=== PATIENT | male | born 1955 | race Caucasian/White ===

== ENCOUNTER 2021-10-29 10:11 | Outpatient (REF) | payer BC, SELFPAY ==
[2021-10-29 10:32] LABS: MANUAL DIFF FLAG NO
[2021-10-29 11:05] LABS: Basophils Percent Auto 0.5 % (0-2); Hematocrit 44.1 % (42.0-52.0); Hemoglobin 15.6 g/dl (14.0-18.0); Imm Gran Abs Auto 0.02 X10*3/uL (0.00-0.03); Imm Gran Pct Auto 0.3 % (0.0-0.4); Lymphocytes Absolute Auto 2.4 X10*3/uL (1.2-4.9); Lymphocytes Percent Auto 37.4 % (20-40); Mean Corpuscular HGB Conc 35.4 g/dl (31.0-36.0); Mean Corpuscular Hemoglobin 32.2 pg (27.0-33.0); Mean Corpuscular Volume 90.9 fL (80.0-98.0); Monocytes Absolute Auto 0.3 X10*3/uL (0.1-1.2); Monocytes Percent Auto 5.2 % (2-11); Neutrophils Absolute Auto 3.6 x10*3/uL (2.0-8.3); Neutrophils Percent Auto 56.6 % (45-73); Platelet Count 197 X10*3/uL (160-400); Red Blood Count 4.85 X10*6/uL (4.60-5.80); Red Cell Distribution Width 12.2 % (11.0-16.0); White Blood Count 6.4 X10*3/uL (4.8-10.8)
[2021-10-29 12:09] LABS: Alanine Aminotransferase 25 U/L (0-40); Albumin Level 4.3 g/dL (3.5-5.0); Alkaline Phosphatase 98 U/L (39-117); Anion Gap 12 (12-20); Aspartate Amino Transferase 15 U/L (5-37); Bilirubin Total 0.8 mg/dL (0.0-1.0); Blood Urea Nitrogen 22 mg/dL (9-16); Calcium 10.2 mg/dL (8.4-10.2); Carbon Dioxide 25 mmol/L (22-29); Chloride 107 mmol/L (96-108); Cholesterol 150 mg/dL; Estimated Glomerular Filt Rate > 60; Glucose Fasting 119 mg/dL (60-99); HDL Cholesterol 31 mg/dL; LDL Cholesterol Calculated 104 mg/dl; Potassium 4.7 mmol/L (3.3-5.1); Sodium 139 mmol/L (135-145); Total Protein 6.8 g/dL (6.5-8.0); Triglycerides 75 mg/dL
[2021-10-29 12:40] LABS: Prostate Specific Antigen 1.35 ng/mL (<0.05-4.0)
== END 2021-10-29 10:12 | disposition home or self-care (01) ==
LOC: HO.LAB 10:11
PROVIDERS: PCP Internal Medicine; Visit Provider Internal Medicine
DX: Z00.00 Encounter for general adult medical examination without abnormal findings (principal); Z12.5 Encounter for screening for malignant neoplasm of prostate
CPT/HCPCS: 36415; 80053; 80061; 84153; 85025

== ENCOUNTER 2021-11-01 09:34 | Outpatient (REF) | payer OTHER, SELFPAY ==
--- NOTE | ~2021-11-01 | XR_ITS ---
EXAMINATION: XR CHEST CLINICAL INFORMATION: Cough. COMPARISON: Chest radiographs 04/19/2011 TECHNIQUE: 2 views of the chest were obtained. FINDINGS: There is a chronic nodule mid right lower lobe similar to remote prior exam 2010 measuring approximately 7 x 10 mm. There is vague opacity medial right upper lobe overlying the first costochondral junction without correlate on lateral view. Opacity may be related to density from the costal cartilage. This may be further assessed with apical lordotic view. The remainder the lungs are clear. The costophrenic sulci are clear. The heart is normal in size. The vascularity is normal. The hilar and mediastinal contours are unremarkable. No acute bony abnormality. XR/XR chest 2V IMPRESSION: 1. Opacity right medial upper zone on AP view, possibly related partly to the first costochondral junction. Recommend apical lordotic view for further evaluation. 2. Chronic nodule right lower lobe similar to 2011. 3. Lungs otherwise clear. No effusion. PSA to call.
[2021-11-01 10:41] LABS: Influenza A PCR NEGATIVE (Negative); Influenza B PCR NEGATIVE (Negative); Resp Syncy Virus RNA Qual PCR NEGATIVE (Negative); SARS COV2 PCR INHOUSE POSITIVE (Negative)
[2021-11-01 10:52] LABS: Estimated Average Glucose 108 mg/dL; Hemoglobin A1c % 5.4 %
[2021-11-01 10:59] LABS: Appearance Urine CLEAR; Color Urine YELLOW; Glucose Urine UA 100 MG/DL (NEG); Leukocyte Esterase Urine NEG (NEG); Nitrite Urine NEG (NEG); Specific Gravity - Urine 1.025 (1.005-1.025); Urine Blood NEG (NEG); Urine Ketones 5 MG/DL (NEG); Urine Protein NEG (NEG-TRACE)
[2021-11-01 11:11] LABS: D Dimer High Sensitivity < 150 NG/ML
[2021-11-01 11:14] LABS: C Reactive Protein 2.13 mg/dL (< or = 0.50)
[2021-11-01 11:15] LABS: B Type Natriuretic Peptide 14 pg/mL (<100)
[2021-11-01 11:28] LABS: Erythrocyte Sedimentation Rate 5 MM/HR (0-15)
[2021-11-01 11:42] LABS: Free T4 (Free Thyroxine) 0.84 ng/dL (0.71-1.85); Thyroid Stimulating Hormone 1.01 uIU/mL (0.32-4.0)
[2021-11-03 01:12] LABS: Lyme Abs Screen <0.90 index
== END 2021-11-01 09:35 | disposition home or self-care (01) ==
LOC: HO.XRAY 09:34
PROVIDERS: PCP Internal Medicine; Visit Provider Internal Medicine
DX: Z20.822 Contact with and (suspected) exposure to COVID-19 (principal); R05.9 Cough, unspecified; R53.83 Other fatigue; E78.00 Pure hypercholesterolemia, unspecified
CPT/HCPCS: 0241U; 36415; 71046; 81003; 82550; 83036; 83880; 84439; 84443; 85379; 85652; 86140; 86617; 86618

== ENCOUNTER 2021-11-14 15:21 | Outpatient (REF) | payer OTHER, SELFPAY ==
--- NOTE | ~2021-11-14 | US_ITS ---
EXAMINATION: US EXTRACRANIAL CAROTID DUPLEX, BILATERAL CLINICAL INFORMATION: History of transient ischemic attack. Hypertension. COMPARISON: None TECHNIQUE: Real-time ultrasound and Doppler techniques (integrating B-mode 2-D vascular images, Doppler spectral analysis and color-flow Doppler imaging) were utilized to interrogate the extracranial carotid arteries, the vertebral arteries and proximal subclavian arteries bilaterally. The degree of stenosis is determined by criteria similar to NASCET. FINDINGS: Right Side: 1. There is mild atherosclerotic plaque seen in the bifurcation/proximal ICA region. 2. The common carotid artery PSV proximally is 107 cm/s and distally 97 cm/s. 3. The proximal internal carotid artery velocities are 77 cm/s systolic and 13 cm/s diastolic. 4. The proximal external carotid artery PSV is 110 cm/s. 5. The vertebral artery shows antegrade flow. 6. The subclavian artery waveforms are normal. Left Side: 1. There is mild atherosclerotic plaque seen in the bifurcation/proximal ICA region. 2. The common carotid artery PSV proximally is 128 cm/s and distally 87 cm/s. 3. The proximal internal carotid artery velocities are 70 cm/s systolic and 23 cm/s diastolic. 4. The proximal external carotid artery PSV is 109 cm/s. 5. The vertebral artery shows antegrade flow. 6. The subclavian artery waveforms are normal. ADDITIONAL: Within the left lobe of the thyroid is a 0.9 cm cystic nodule. US/US carotid duplex BI IMPRESSION: 1. RIGHT: Minimal, non-hemodynamically significant stenosis of the proximal right internal carotid artery corresponding to a 0-49% stenosis by velocity criteria. 2. LEFT: Minimal, non-hemodynamically significant stenosis of the proximal left internal carotid artery corresponding to a 0-49% stenosis by velocity criteria.
== END 2021-11-14 15:22 | disposition home or self-care (01) ==
LOC: HO.US 15:21
PROVIDERS: PCP Internal Medicine; Visit Provider Internal Medicine
DX: G45.9 Transient cerebral ischemic attack, unspecified (principal)
CPT/HCPCS: 93880

== ENCOUNTER 2021-11-22 14:14 | Outpatient (REF) | payer OTHER, SELFPAY ==
--- NOTE | ~2021-11-22 | MR_ITS ---
MR BRAIN WITHOUT AND WITH CONTRAST CLINICAL INFORMATION: TIA to rule out CVA. The patient describes one episode of unusual behavior. COMPARISON: None available. TECHNIQUE: Multiplanar, multisequence MRI of the brain was obtained before and after the intravenous administration of 10 mL of Gadavist. FINDINGS: There is a subacute appearing intraparenchymal hemorrhage within the left putamen measuring up to 3.3 cm AP by 1.3 cm TV by 2.5 cm CC. The hematoma exhibits primarily high T1 signal intensity subacute methemoglobin without any definite enhancement when comparing the precontrast to the postcontrast series. There is mild chronic microangiopathy. There is no hydrocephalus, extra-axial surface collection, or herniation. The major flow voids at the skull base are preserved. There is no acute infarct on diffusion-weighted imaging. The midline structures are normal. The cerebellar tonsils are normally positioned. The cerebellum and brainstem are normal. The craniocervical junction is normal. Osseous marrow signal intensity is homogenous. The visualized soft tissues are unremarkable. Retention cysts within the right maxillary sinus and mild mucosal thickening throughout the remaining paranasal sinuses. 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 The hematoma exhibits primarily high T1 signal intensity subacute methemoglobin without any definite enhancement when comparing the precontrast to the postcontrast series. Findings discussed with Dr. Abdul at 3:44 PM on 11/22/2021.
== END 2021-11-22 14:15 | disposition home or self-care (01) ==
LOC: HO.MRI 14:14
PROVIDERS: Visit Provider Internal Medicine
DX: G45.9 Transient cerebral ischemic attack, unspecified (principal)
CPT/HCPCS: 70553; A9585

== ENCOUNTER 2021-12-24 16:23 | Outpatient (REF) | payer OTHER, SELFPAY ==
[2021-12-24 17:46] LABS: Alanine Aminotransferase 23 U/L (0-40); Albumin Level 4.4 g/dL (3.5-5.0); Alkaline Phosphatase 94 U/L (39-117); Anion Gap 11 (12-20); Aspartate Amino Transferase 15 U/L (5-37); Bilirubin Total 0.6 mg/dL (0.0-1.0); Blood Urea Nitrogen 33 mg/dL (9-16); Calcium 10.5 mg/dL (8.4-10.2); Carbon Dioxide 27 mmol/L (22-29); Chloride 102 mmol/L (96-108); Estimated Glomerular Filt Rate 50; Glucose Random 140 mg/dL (60-115); Potassium 4.3 mmol/L (3.3-5.1); Sodium 136 mmol/L (135-145)
== END 2021-12-24 16:24 | disposition home or self-care (01) ==
LOC: HO.LAB 16:23
PROVIDERS: PCP Internal Medicine; Visit Provider Internal Medicine
DX: I10 Essential (primary) hypertension (principal)
CPT/HCPCS: 36415; 80053

== ENCOUNTER 2022-01-14 15:57 | Outpatient (REF) | payer OTHER, SELFPAY ==
[2022-01-14 17:26] LABS: Anion Gap 13 (12-20); Blood Urea Nitrogen 24 mg/dL (9-16); Calcium 10.2 mg/dL (8.4-10.2); Carbon Dioxide 25 mmol/L (22-29); Chloride 105 mmol/L (96-108); Estimated Glomerular Filt Rate 55; Glucose Random 138 mg/dL (60-115); Potassium 4.6 mmol/L (3.3-5.1); Sodium 138 mmol/L (135-145)
[2022-01-14 20:16] LABS: Estimated Average Glucose 123 mg/dL; Hemoglobin A1C 148.8321 umol/L; Hemoglobin A1c % 5.9 %
== END 2022-01-14 15:58 | disposition home or self-care (01) ==
LOC: HO.LAB 15:57
PROVIDERS: Visit Provider Internal Medicine
DX: R73.03 Prediabetes (principal); I10 Essential (primary) hypertension
CPT/HCPCS: 36415; 80048; 83036

== ENCOUNTER 2022-03-05 16:13 | Outpatient (REF) | payer OTHER, SELFPAY ==
--- NOTE | ~2022-03-05 | MR_ITS ---
EXAMINATION: MR BRAIN WITHOUT CONTRAST MR ANGIOGRAPHY OF THE HEAD WITHOUT CONTRAST CLINICAL INFORMATION: Cerebral hemorrhage and hypertension. COMPARISON: MRI scan of the brain 11/22/2021. TECHNIQUE: Multiplanar, multisequence imaging of the brain was obtained without contrast. 3-D [id number] MR angiography was performed. Multiple 3-D reformatted images were processed on the technologist workstation. The degree of stenosis is based off NASCET criteria. FINDINGS: MRI BRAIN: There are evolving changes from the previously demonstrated left basal ganglia parenchymal hemorrhage. An oval area of increased T2 signal with surrounding low gradient signal is noted, consistent with sequelae of prior left basal ganglia hemorrhage. It is slightly smaller compared to prior imaging, and measures 3.3 x 0.8 x 1.5 cm in AP, transverse and craniocaudal dimensions. On the T1 images the contents are hypointense on the current study. No new areas of hemorrhage are demonstrated. There is no increased diffusion signal within or around the hemorrhage in the current study. There is mild increased FLAIR signal in the periphery of hemorrhage. There is no mass effect or midline shift. No diffusion abnormalities are identified to suggest an acute or subacute infarct. The ventricles and sulci are slightly commensurately prominent consistent with diffuse volume loss. There are scattered areas of increased T2 and FLAIR signal in the periventricular subcortical white matter, consistent with mild chronic microvascular ischemic disease. No extra-axial fluid collections are seen. The brainstem and cerebellum are normal. No new pathologic magnetic susceptibility artifact is identified on the gradient refocused acquisition. The craniovertebral junction, marrow signal, and midline structures are normal. The major intracranial flow-voids at the level of the [place] are preserved. The dural venous sinus flow-voids are maintained. The mastoid air cells are well-aerated. There is a retention cyst in the right maxillary sinus. There is mild mucoperiosteal thickening in the maxillary and ethmoid sinuses. MRA HEAD: In the anterior circulation, the distal internal carotid arteries within the neck appear normal. The intracranial internal carotid arteries and their bifurcations appear normal. The A1 segment of the right anterior cerebral artery has uniform thin caliber compared to the left, likely congenital. The bilateral middle and left anterior cerebral arteries demonstrate normal caliber with no evidence of focal stenosis, aneurysm or vascular malformation. There are three A2 segments of the anterior cerebral arteries, which is a normal variant. The anterior communicating artery is normal. In the posterior circulation, the vertebral arteries are codominant, and have uniform caliber intradurally. The basilar artery appears normal. The posterior cerebral arteries have normal caliber. MR/MR angio head wo con IMPRESSION: 1. There are no acute bleeds or infarcts. No masses are demonstrated. 2. 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 There is no mass effect or midline shift. 3. MRA of the head does not demonstrate focal stenosis, aneurysm or vascular malformation. Normal variant changes as described above. MR angiography of the intracranial circulation does not demonstrate focal stenosis, aneurysm or vascular malformation. The study is within normal limits.
--- NOTE | ~2022-03-05 | MR_ITS ---
EXAMINATION: MR BRAIN WITHOUT CONTRAST MR ANGIOGRAPHY OF THE HEAD WITHOUT CONTRAST CLINICAL INFORMATION: Cerebral hemorrhage and hypertension. COMPARISON: MRI scan of the brain 11/22/2021. TECHNIQUE: Multiplanar, multisequence imaging of the brain was obtained without contrast. 3-D [id number] MR angiography was performed. Multiple 3-D reformatted images were processed on the technologist workstation. The degree of stenosis is based off NASCET criteria. FINDINGS: MRI BRAIN: There are evolving changes from the previously demonstrated left basal ganglia parenchymal hemorrhage. An oval area of increased T2 signal with surrounding low gradient signal is noted, consistent with sequelae of prior left basal ganglia hemorrhage. It is slightly smaller compared to prior imaging, and measures 3.3 x 0.8 x 1.5 cm in AP, transverse and craniocaudal dimensions. On the T1 images the contents are hypointense on the current study. No new areas of hemorrhage are demonstrated. There is no increased diffusion signal within or around the hemorrhage in the current study. There is mild increased FLAIR signal in the periphery of hemorrhage. There is no mass effect or midline shift. No diffusion abnormalities are identified to suggest an acute or subacute infarct. The ventricles and sulci are slightly commensurately prominent consistent with diffuse volume loss. There are scattered areas of increased T2 and FLAIR signal in the periventricular subcortical white matter, consistent with mild chronic microvascular ischemic disease. No extra-axial fluid collections are seen. The brainstem and cerebellum are normal. No new pathologic magnetic susceptibility artifact is identified on the gradient refocused acquisition. The craniovertebral junction, marrow signal, and midline structures are normal. The major intracranial flow-voids at the level of the [place] are preserved. The dural venous sinus flow-voids are maintained. The mastoid air cells are well-aerated. There is a retention cyst in the right maxillary sinus. There is mild mucoperiosteal thickening in the maxillary and ethmoid sinuses. MRA HEAD: In the anterior circulation, the distal internal carotid arteries within the neck appear normal. The intracranial internal carotid arteries and their bifurcations appear normal. The A1 segment of the right anterior cerebral artery has uniform thin caliber compared to the left, likely congenital. The bilateral middle and left anterior cerebral arteries demonstrate normal caliber with no evidence of focal stenosis, aneurysm or vascular malformation. There are three A2 segments of the anterior cerebral arteries, which is a normal variant. The anterior communicating artery is normal. In the posterior circulation, the vertebral arteries are codominant, and have uniform caliber intradurally. The basilar artery appears normal. The posterior cerebral arteries have normal caliber. MR/MR head/brain wo con IMPRESSION: 1. There are no acute bleeds or infarcts. No masses are demonstrated. 2. 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 There is no mass effect or midline shift. 3. MRA of the head does not demonstrate focal stenosis, aneurysm or vascular malformation. Normal variant changes as described above. MR angiography of the intracranial circulation does not demonstrate focal stenosis, aneurysm or vascular malformation. The study is within normal limits.
== END 2022-03-05 16:14 | disposition home or self-care (01) ==
LOC: HO.MRI 16:13
PROVIDERS: Visit Provider Psychiatry & Neurology Neurology
DX: I61.9 Nontraumatic intracerebral hemorrhage, unspecified (principal); I10 Essential (primary) hypertension
CPT/HCPCS: 70544; 70551

== ENCOUNTER 2022-04-06 08:43 | Outpatient (REF) | payer OTHER, SELFPAY ==
[2022-04-06 09:04] LABS: MANUAL DIFF FLAG NO
[2022-04-06 09:12] LABS: Basophils Percent Auto 0.5 % (0-2); Hematocrit 44.3 % (42.0-52.0); Hemoglobin 15.7 g/dl (14.0-18.0); Imm Gran Abs Auto 0.02 X10*3/uL (0.00-0.03); Imm Gran Pct Auto 0.3 % (0.0-0.4); Lymphocytes Absolute Auto 2.2 X10*3/uL (1.2-4.9); Lymphocytes Percent Auto 34.9 % (20-40); Mean Corpuscular HGB Conc 35.4 g/dl (31.0-36.0); Mean Corpuscular Hemoglobin 32.3 pg (27.0-33.0); Mean Corpuscular Volume 91.2 fL (80.0-98.0); Mean Platelet Volume 9.1 fL (9.4-12.4); Monocytes Absolute Auto 0.3 X10*3/uL (0.1-1.2); Monocytes Percent Auto 5.3 % (2-11); Neutrophils Absolute Auto 3.7 x10*3/uL (2.0-8.3); Platelet Count 173 X10*3/uL (160-400); Red Blood Count 4.86 X10*6/uL (4.60-5.80); White Blood Count 6.3 X10*3/uL (4.8-10.8)
[2022-04-06 09:22] LABS: Estimated Average Glucose 97 mg/dL
[2022-04-06 09:49] LABS: Alanine Aminotransferase 17 U/L (0-40); Albumin Level 4.1 g/dL (3.5-5.0); Alkaline Phosphatase 83 U/L (39-117); Anion Gap 12 (12-20); Aspartate Amino Transferase 14 U/L (5-37); Blood Urea Nitrogen 23 mg/dL (9-16); Calcium 10.3 mg/dL (8.4-10.2); Carbon Dioxide 29 mmol/L (22-29); Chloride 104 mmol/L (96-108); Cholesterol 152 mg/dL; Estimated Glomerular Filt Rate > 60; Glucose Fasting 134 mg/dL (60-99); HDL Cholesterol 43 mg/dL; LDL Cholesterol Calculated 94 mg/dl; Potassium 4.9 mmol/L (3.3-5.1); Sodium 140 mmol/L (135-145); Total Protein 6.6 g/dL (6.5-8.0); Triglycerides 76 mg/dL
[2022-04-06 11:42] LABS: Creatinine Urine 116.39 mg/dL; Microalbumin Urine < 5.0 mg/L
== END 2022-04-06 08:44 | disposition home or self-care (01) ==
LOC: HO.LAB 08:43
PROVIDERS: PCP Internal Medicine; Visit Provider Internal Medicine
DX: I12.9 Hypertensive chronic kidney disease with stage 1 through stage 4 chronic kidney disease, or unspecified chronic kidney disease (principal); N18.9 Chronic kidney disease, unspecified; R73.03 Prediabetes; Z86.73 Personal history of transient ischemic attack (TIA), and cerebral infarction without residual deficits
CPT/HCPCS: 36415; 80053; 80061; 82043; 83036; 85025

== ENCOUNTER 2022-07-02 16:39 | Outpatient (REF) | payer OTHER, SELFPAY ==
[2022-07-02 17:29] LABS: Estimated Average Glucose 111 mg/dL; Hemoglobin A1c % 5.5 %
[2022-07-02 17:40] LABS: Anion Gap 10 (12-20); Blood Urea Nitrogen 28 mg/dL (9-16); Calcium 10.4 mg/dL (8.4-10.2); Carbon Dioxide 28 mmol/L (22-29); Chloride 105 mmol/L (96-108); Estimated Glomerular Filt Rate > 60; Glucose Random 114 mg/dL (60-115); Potassium 4.2 mmol/L (3.3-5.1); Sodium 139 mmol/L (135-145)
== END 2022-07-02 16:40 | disposition home or self-care (01) ==
LOC: HO.LAB 16:39
PROVIDERS: PCP Internal Medicine; Visit Provider Internal Medicine
DX: I10 Essential (primary) hypertension (principal); R73.03 Prediabetes
CPT/HCPCS: 36415; 80048; 83036

== ENCOUNTER 2024-04-16 06:16 | Outpatient (REF) | payer OTHER, SELFPAY ==
[2024-04-16 06:35] LABS: MANUAL DIFF FLAG NO
[2024-04-16 07:15] LABS: Basophils Percent Auto 0.5 % (0-2); Eosinophils Absolute Auto 0.1 X10*3/uL (0.0-0.4); Eosinophils Percent Auto 1.8 % (0-4); Hematocrit 40.5 % (42.0-52.0); Imm Gran Abs Auto 0.03 X10*3/uL (0.00-0.03); Imm Gran Pct Auto 0.5 % (0.0-0.4); Lymphocytes Absolute Auto 2.9 X10*3/uL (1.2-4.9); Lymphocytes Percent Auto 43.5 % (20-40); Mean Corpuscular Hemoglobin 33.9 pg (27.0-33.0); Mean Corpuscular Volume 91.6 fL (80.0-98.0); Mean Platelet Volume 10.2 fL (9.4-12.4); Monocytes Absolute Auto 0.4 X10*3/uL (0.1-1.2); Monocytes Percent Auto 6.5 % (2-11); Neutrophils Absolute Auto 3.2 x10*3/uL (2.0-8.3); Neutrophils Percent Auto 47.2 % (45-73); Platelet Count 195 X10*3/uL (160-400); Red Blood Count 4.42 X10*6/uL (4.60-5.80); White Blood Count 6.7 X10*3/uL (4.8-10.8)
[2024-04-16 07:23] LABS: Appearance Urine Clear; Color Urine Yellow; Glucose Urine UA Negative (Negative); Leukocyte Esterase Urine Negative (Negative); Nitrite Urine Negative (Negative); PH 6.5 (5.0-9.0); Specific Gravity - Urine 1.015 (1.005-1.025); Urine Blood Negative (Negative); Urine Ketones Negative (Negative); Urine Protein Negative (Neg-Trace)
[2024-04-16 07:36] LABS: Estimated Average Glucose 111 mg/dL; Hemoglobin A1C 135.8022 umol/L; Hemoglobin A1c % 5.5 % (<6.0)
[2024-04-16 08:16] LABS: Alanine Aminotransferase 24 U/L (0-40); Albumin Level 4.1 g/dL (3.5-5.0); Alkaline Phosphatase 65 U/L (39-117); Anion Gap 11 (12-20); Aspartate Amino Transferase 18 U/L (5-37); Blood Urea Nitrogen 31 mg/dL (9-16); Calcium 10.2 mg/dL (8.4-10.2); Carbon Dioxide 27 mmol/L (22-29); Chloride 105 mmol/L (96-108); Cholesterol 149 mg/dL (<200); Estimated Glomerular Filt Rate 52; Glucose Fasting 117 mg/dL (60-99); HDL Cholesterol 37 mg/dL (>40); LDL Cholesterol Calculated 96 mg/dL (<100); Potassium 3.7 mmol/L (3.3-5.1); Sodium 139 mmol/L (135-145); Total Protein 6.6 g/dL (6.5-8.0); Triglycerides 84 mg/dL (<150)
[2024-04-16 15:10] LABS: Creatinine Urine 80.06 mg/dL; Microalbum/Creatinine Ratio Ur 7.4 ug/mg cr (<30)
== END 2024-04-16 06:17 | disposition home or self-care (01) ==
LOC: HO.LAB 06:16
PROVIDERS: PCP Internal Medicine; Visit Provider Internal Medicine
DX: I10 Essential (primary) hypertension (principal); R73.03 Prediabetes; N40.1 Benign prostatic hyperplasia with lower urinary tract symptoms
CPT/HCPCS: 36415; 80053; 80061; 81003; 82043; 82570; 83036; 85025

== ENCOUNTER 2025-04-18 15:11 | Outpatient (AMB) | payer OTHER, SELFPAY ==
--- NOTE | 2025-04-18 15:13 | A.OFFPC_ITS ---
Vital Signs 04/18/25 15:24 Height 6 ft 0.5 in Weight 236 lb BMI 31.6 BP 148/80 H Blood Pressure Location Lt brachial Position Sitting Respiration 17 Pulse 62 Pulse Source Pulse Oximeter Temp 97.2 F Temp Source Temporal Artery Scan Pulse Oximetry (%) 95 Oxygen Delivery Method Room Air Intake Visit Reasons: Annual Strip Roller Required: No Accompanied by: Self / Same As Patient Allergies oxycodone (From Percocet) Allergy (Mild, Verified 04/18/25 15:14) ITCHING Tobacco use date assessed: 04/18/25 Fall risk assessment: 1 Fall in past year Last assessed Fall Risk: 04/18/25 Dental Screening Dental Screen Date: 04/18/25 Did you have a dental visit in the last 12 months?: No Did you have a dental problem in the last 6 months where you did not have access to dental care?: No Was dental information given to patient?: Patient has dentist HPI HPI Comments History of Present Illness Details The patient is a 69-year-old male presenting with a follow-up for management of Essential Hypertension and assessment for hyperlipidemia. He has a long-standing history of hypertension for which he has been prescribed Hydrochlorothiazide 25 mg and Irbesartan 300 mg once daily. The medications were initially started following a mini-stroke or transient ischemic attack several years ago, attributed to elevated blood pressure levels. Over the years, the patient reports stable blood pressure readings at home averaging 135 mmHg systolic, although today's reading was 148/80 mmHg, causing some concern. The patient does not report any current symptoms related to blood pressure fluctuations but acknowledges a previous history of kidney stones that required ultrasonic intervention, an episode which typically involved taking pain me dications that he found resulted in itching. The patient also mentions a cholesterol issue, which, based on past labs, indicates borderline levels requiring monitoring and potential treatment. Other relevant family history includes paternal atrial fibrillation managed with anticoagulants and a grandmother with insulin-dependent diabetes mellitus. The patient's medical management is crucial to assess today to prevent possible cardiovascular events, as the calculated risk of heart-related incidents (such as myocardial infarction or stroke) warrants potential initiation on statins, acknowledging the patient?s current borderline cholesterol levels. Medical History: - Essential Hypertension - Status post Transient Ischemic Attack (TIA) - Borderline Hyperlipidemia - History of Renal Calculi Surgical History: - Vasectomy - Appendectomy - Lithotripsy for Renal Calculi Medications: - Hydrochlorothiazide 25 mg once daily ( for hypertension) - Irbesartan 300 mg once daily (for hype rtension) Family History: - Paternal history of atrial fibrillatio n - Grandmother with insulin-dependent christofer betes mellitus Social History: - Employment: [employer] at [employer] - Housing: Stable housing on [facility]; owns a home - Alcohol Use: Consumes one alcoholic dr ink daily after work - Tobacco Use: Denied, except briefly at age 13 - Recreational drug use: Denied - Family: Five children - Financial: Manages bill payments satis Transfer To [facility] Medical History (Updated 04/18/25 @ 15:40 by Newton Sheridan MD) Hyperlipidemia Hypertension Surgical History (Updated 04/18/25 @ 08:54 by Sarah Tapia) History of colonoscopy (~12/31/19) Social History Housing: House Patient Tobacco Use Status: Never used Tobacco e-Cigarette/Vaping Use: Never Used service: No Current occupational status: employed Current occupation: [employer] Questionnaire PHQ-9 Over the last 2 weeks, how often have you been bothered by any of the following problems? 1. Little interest or pleasure in doing things: not at all 2. Feeling down, depressed, or hopeless: not at all 3. Trouble falling or staying asleep, or sleeping too much: not at all 4. Feeling tired or having little energy: not at all 5. Poor appetite or overeating: not at all 6. Feeling bad about yourself - or that you are a failure or have let yourself or your family down: not at all 7. Trouble concentrating on things, such as reading the newspaper or watching television: not at all 8. Moving or speaking so slowly that other people could have noticed. Or the opposite - being so fidgety or restless that you have been moving around a lot more than usual: not at all 9. Thoughts that you would be better off or of hurting yourself in some way: not at all Total score: 0 Depression Screening Interpretation: Negative Depression Screening Done: Yes 98142 - PHQ-9 Billing: Yes Source: Developed by Drs. Braxton Bravo, Maliha Alcazar, Alberto Balderrama and colleagues, with an educational julisa from [employer]. Thrive Questionnaire Date Thrive assessed: 04/18/25 I am a: Patient What is your living situation today?: I have a steady place to live Within the past 12 months, did the food you bought not last and you didn't have the money to get more?: Never true Within the past 12 months, did you worry whether your food would run out before you got money to buy more?: Never true Do you have trouble paying for medicines?: No Do you have trouble getting transportation to medical appointments?: No Do you have trouble paying your heating and electricity bill?: No Do you have trouble taking care of your child, family member or friend?: No Do you have trouble with day-to-day activities such as bathing, preparing meals, shopping, managing finances, etc.?: No Are you currently unemployed and looking for a job?: No Are you interested in more education?: No THRIVE Score: 0 AUDIT C Alcohol Use Questionnaire (AUDIT-C) 1. How often do you have a drink containing alcohol?: 4 or more times a week 2. How many drinks containing alcohol do you have on a typical day when you are drinking?: 1 or 2 3. How often do you have six or more drinks on one occasion?: Never Total Score: 4 IZAIAH-7 AMB Questionnaire IZAIAH-7 Date IZAIAH - 7 assessed: 04/18/25 Feeling nervous, anxious, or on edge: 0 = Not at all Not being able to stop or control worryin = Not at all Worrying too much about different things: 0 = Not at all Trouble relaxin = Not at all Being so restless that it is hard to sit still: 0 = Not at all Becoming easily annoyed or irritable: 0 = Not at all Feeling afraid as if something awful might happen: 0 = Not at all Total IZAIAH-7 score (0-4 normal; 5-9 mild; 10-14 moderate; 15-21 severe): 0 Source: Developed by Drs. Braxton Bravo, Maliha Alcazar, Alberto Balderrama and colleagues, with an educational julisa from [employer] IZAIAH-7 Assessment Billing IZAIAH-7 Assessment Tool: IZAIAH-7 Assessment 63937 Review of Systems Const Details: - Cardiovascular: Reports hypertension; denies chest pain, palpitations - Neurological: Reports history of TIA; denies current headaches or neurological deficits - Renal: History of kidney stones - Endocrine: Denies diabetes All systems reviewed & are unremarkable except as reviewed in HPI and above Physical exam (Primary Care) Vital Signs: Last Vital Signs Temp 97.2 F 04/18/25 15:24 Pulse 62 04/18/25 15:24 Resp 17 04/18/25 15:24 BP 148/80 H 04/18/25 15:24 Pulse Ox 95 04/18/25 15:24 Oxygen Delivery Method Room Air 04/18/25 15:24 BMI result Body Mass Index 31.6 Tobacco/Smoking Status: Tobacco use Status Tobacco use date assessed 04/18/25 04/18/25 15:17 Patient Tobacco Use Status Never used Tobacco 04/18/25 15:27 e-Cigarette/Vaping Use Never Used 04/18/25 15:27 PHQ-9: PHQ-9 Score PHQ-9: Total score 0 04/18/25 15:34 Depression Screening Interpretation: Negative Thrive Assessment: Date of Thrive Assessment Date Thrive assessed 04/18/25 04/18/25 15:34 Const Other: General: +Alert and oriented, Well nourished, No acute distress. Eye: Pupils are equal, round and reactive to light, Intact accommodation, Extraocular movements are intact, Normal conjunctiva, Vision unchanged. HENT: Normocephalic, Atraumatic, Tympanic membranes are clear, Normal hearing, Oral mucosa is moist, No pharyngeal erythema, Ear canals patent. Respiratory: Lungs CTA bilaterally, No wheeze, Respirations are non-labored. Cardiovascular: Regular rate, Regular rhythm, S1 auscultated, S2 auscultated, No murmur, Good pulses equal in all extremities, Normal peripheral perfusion, No edema. Gastrointestinal: Soft, Non-tender, Non-distended, Normal bowel sounds, No organomegaly. Musculoskeletal: Normal range of motion, Normal strength, No tenderness, No swelling, No deformity, Normal gait. Integumentary: Warm, Dry, [place], Intact. Neurologic: Alert, Oriented, Normal sensory, Normal motor function, No focal defects, Cranial Nerves II-XII are grossly intact, Normal deep tendon reflexes. Psychiatric: Cooperative, Appropriate mood & affect, Normal judgment. Coding Level of Care Code New Pt Level 4 (29562) Diagnoses Primary hypertension I10 Hypertension type: primary hypertension Other hyperlipidemia E78.49 Hyperlipidemia type: other hyperlipidemia Additional Codes IZAIAH-7 Assessment Billing - IZAIAH-7 Assessment Tool: IZAIAH-7 Assessment 73957 ([id number]) PHQ-9 - 44515 - PHQ-9 Billing: Yes ([id number]) Assessment & Plan Assessment & Plan (1) Hypertension: Comment: - Continue current medications: Hydrochlorothiazide 25 mg and Irbesartan 300 mg daily. - Advise home monitoring of blood pressure once daily in the morning and log readings. - Re-evaluate treatment strategy in four months with recorded blood pressure data. - Potential adjustment of Hydrochlorothiazide to 37.5 mg if necessary per follow-up results. Code(s): I10 - Essential (primary) hypertension Category: Medical Qualifiers: Hypertension type: primary hypertension Qualified Code(s): I10 - Essential (primary) hypertension (2) Hyperlipidemia: Comment: - Order labs to check current cholesterol levels and assess need for statin therapy. - Discuss initiation of Atorvastatin pending lab results, emphasizing its benefits in reducing cardiovascular events. Code(s): E78.5 - Hyperlipidemia, unspecified Category: Medical Qualifiers: Hyperlipidemia type: other hyperlipidemia Qualified Code(s): E78.49 - Other hyperlipidemia Plan: Health maintenance: - Colonoscopy due and should be scheduled. - Comprehensive lab work is ordered today. - Review potential for lifestyle modifications, reducing alcohol intake, and integrating exercise plans discussed per follow-up results. Patient was informed and verbally consented to the use of an ambient scribe for clinic note documentation during this visit. Plan I discussed the patient's hypertension management, emphasizing the importance of regular monitoring and potential medication adjustment according to home blood pressure readings. We also talked about the risks and benefits of starting statin therapy, particularly in light of his suspected hyperlipidemia and cardiovascular risk profile. I advised comprehensive laboratory screening today, addressing cardiovascular health and flagged necessary preventative colonoscopy scheduling. These measures, alongside continued lifestyle recommendations to moderate alcohol consumption and encourage healthy lifestyle choices, were well- understood by the patient, and we agreed on a four-month follow-up to review all findings and adjust the care plan accordingly. Orders: Orders Comprehensive Met. Panel Today Z76.89 - Persons encountering health services in other specified circumstances Lipid Panel Today Z76.89 - Persons encountering health services in other specified circumstances HIV Ab/Ag Today Z76.89 - Persons encountering health services in other specified circumstances Complete Blood Count Auto Diff Today Z76.89 - Persons encountering health services in other specified circumstances Hemoglobin A1c Today Z76.89 - Persons encountering health services in other specified circumstances Hepatitis A,B,C Profile Today Z76.89 - Persons encountering health services in other specified circumstances Syphilis Screen Today Z76.89 - Persons encountering health services in other specified circumstances TSH reflex Free T4 Today Z76.89 - Persons encountering health services in other specified circumstances Vitamin D 25-OH Total Today Z76.89 - Persons encountering health services in other specified circumstances Patient Instructions: - Continue taking your blood pressure medications as prescribed. - Monitor your blood pressure at home once every morning and record your readings. - Cut down on alcohol, have it less frequently. - Schedule your colonoscopy soon as you're due for it. - Have the bloodwork done today as we discussed. - Come back in four months to review your progress and blood pressure logs. - Contact me if you experience any new symptoms or if the blood pressure reading s at home are consistently high.
[2025-04-18 15:24] VITALS: BP 148/80; PULSE 62; RESP 17; TEMP 36.2; O2SAT 95; BMI 31.6
--- OUTSIDE RECORDS SUMMARY | 2025-04-18 17:19 | XMS_ITS | Patient Health Record ---
Author Organization [facility] Address [address] [place] [address] Care Team Providers Care Access Clinician Name Role Phone Franko (RETIRED) Russell DOZIER Primary Care Provide r Braxton Zaidi Unavailable [phone] Allergies Allergen (clinical drug ingredient) Drug/Non Drug Allergy documented on EMR Reaction Allergy Type Onset Date Status Aspartame Unknown Drug Allergy Active Reason For Referral No Information Medications Medication SIG (Take, Route, Fr equency, Duration) Notes Start Date End Date Status Irbesartan 300 MG TAKE 1 TABLET BY MADELIN TH EVERY DAY Oral for 30 Active Aspirin Adult 325 MG 1 tablet Orally QOD Active Immunizations Vaccine Route Administration Date Status Comme nts Influenza Unknown 12/21/2019 Refused Problems Problem Type SNOMED Code ICD Code Onset Dates Problem Status W/U Status Risk Notes Problem 490985054 Encounter for screening for malignant neoplasm of colon (Z12.11) Active confirmed Problem History of adenomatous polyp of colon (146225426) History of adenomatous polyp of colon (Z86.010) Active confirmed Problem [id number] Preprocedural examination (Z01.818) Active confirmed Problem 952879478 Long-term use of aspirin therapy (Z79.82) Active confirmed Plan Of Treatment Pending Test Test Name Order Date GI BIOPSY 12/31/2019 Future Test Test Name Order Date COLONOSCOPY 01/14/2013 COLONOSCOPY 12/21/2019 Insurance Providers Payer Name Payer Address Payer Phone Subscriber Number Group Number Insured Name Patient Relationship to Insured Coverage Start Date Coverage End Date [facility] [address] [place], [place] [id number] IGLESIAS Self - patient is the insured Medical (General) History Medical History History ICD Code Hypertension Denies AK,DM,CVA,Lung disease,renal dise ase Kidney stones--[facility] Screening Colonoscopy in 02/2013 with sma ll tubular adenomas removed Surgical History Surgery Date(Month/Year) Vasectomy Appendectomy
== END 2025-04-18 15:44 | disposition home or self-care (01) ==
PROVIDERS: PCP Student in an Organized Health Care Education/Training Program; Visit Provider Student in an Organized Health Care Education/Training Program
DX: I10 Essential (primary) hypertension (principal); E78.49 Other hyperlipidemia

== ENCOUNTER → 2025-04-18 15:11 | Outpatient (BNVA) | payer OTHER, SELFPAY | PROVIDERS: PCP Internal Medicine; Visit Provider Student in an Organized Health Care Education/Training Program | DX: I10 Essential (primary) hypertension (principal); E78.49 Other hyperlipidemia; Z86.73 Personal history of transient ischemic attack (TIA), and cerebral infarction without residual deficits; Z79.899 Other long term (current) drug therapy; Z13.31 Encounter for screening for depression; Z13.39 Encounter for screening examination for other mental health and behavioral disorders | CPT/HCPCS: 96127 ==